=== PATIENT | female | born 1985 | race Caucasian/White ===

== ENCOUNTER 2017-05-16 16:40 | Inpatient (IN) | payer SELFPAY ==
[2017-05-16] VITALS: BP 145/67
[~2017-05-16] VITALS: Ht 154.9 cm; Wt 96.9 kg
--- NOTE | ~2017-05-16 | CON ---
[place], [place] REPORT OF CONSULTATION NAME: BECKY DALE UNIT #: [id number] ROOM: [id number] DOCTOR: PATRICK FLORENTINO ED.D (JET) BIRTHDATE: [birth year] DOS: 05/17/2017 HISTORY OF PRESENT ILLNESS: The patient is a 31-year-old female referred by the hospitalist for depression. At the present time, this patient is on the 5th floor at [facility] under the new vision program. She is single, but presently resides with her boyfriend. Her parents are both living. She has 2 brothers and 1 sister. 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 She does follow with medical services at [facility] in [place] where she sees a family practitioner. Her medical history is pertinent for opiate dependence, asthma, tobacco abuse, degenerative disk disease, depression and fibromyalgia. Her medications include Suboxone, Soma, Cymbalta and trazodone. Her drug of choice is heroin and she does drink on occasion and smokes 1 pack of cigarettes per day. This patient was awake, alert and oriented in all three spheres. She denies any auditory or visual hallucinations or delusions and denies any suicidal thoughts. She states she does follow at [facility] in [place], [place] for substance abuse issues along with depression. This patient was admitted for detox and rehab following the of a friend by means of an overdose this past Sunday. The patient did have the drugs that her friend from, although she was not with her friend when she . The patient feels very depressed and sad and guilty about this. I did encourage her to follow up with her outpatient counseling in [place] and she did agree to do so. 1. Opiate dependence. 2. Major depressive disorder, recurrent. RECOMMENDATIONS: Continue psych meds as prescribed, continue with [facility] for outpatient counseling. Thank you very much for this consult. PATRICK FLORENTINO ED.D CM:CONSTR:REPORT OF CONSULTATION [id number] 05/17/17 1200 interface
[2017-05-16 16:49] VITALS: BP 187/100
[2017-05-16] MEDS ORDERED: TRAZODONE50 MG PO (16:50)
[2017-05-16] MEDS ORDERED: CYMBALTA60 MG PO (16:50)
[2017-05-16] MEDS ORDERED: SUBOXONE 8 MG-1 EACH SL (16:50)
[2017-05-16 17:18] LABS: BASO % 0.1 % (0.0-1.0); EOS # 0.1 10*3/uL (0.0-0.4); EOS % 1.4 % (1.0-4.0); HEMATOCRIT 38.5 % (37.0-47.0); HEMOGLOBIN 12.6 g/dl (12.0-16.0); LYMPH # 1.6 10*3/uL (1.3-4.4); LYMPH % 23.6 % (27.0-41.0); MEAN CELL VOLUME 80.5 fl (81.0-99.0); MEAN CORPUSCULAR HGB 26.4 pg (27.0-31.0); MEAN CORPUSCULAR HGB CONC 32.7 g/dl (33.0-37.0); MEAN PLATELET VOLUME 9.6 fl (9.6-12.3); MONO # 0.3 10*3/uL (0.1-1.0); MONO % 4.1 % (3.0-9.0); NEUT # 4.9 10*3/uL (2.3-7.9); NEUT % 70.4 % (47.0-73.0); PLATELET COUNT AUTOMATED 272 10*3/uL (130-400); RED BLOOD COUNT 4.78 10*6/uL (4.10-5.10); RED CELL DISTRI WIDTH 15.2 % (0-14.5); WHITE BLOOD COUNT 6.9 10*3/uL (4.8-10.8)
[2017-05-16 17:32] LABS: ALBUMIN 3.5 gm/dl (3.1-4.5); ALKALINE PHOSPHATASE 89 U/L (45-117); BILIRUBIN, TOTAL 0.3 mg/dl (0.2-1.0); BUN 11 mg/dl (7-24); CARBON DIOXIDE 27 mmol/L (21-32); CHLORIDE 105 mmol/L (98-107); EST GLOM FILT AFRICAN AMERICAN > 60 ml/min; GLUCOSE 107 mg/dL (65-99); POTASSIUM 3.7 mmol/L (3.5-5.1); SGOT/AST 17 IU/L (3-35); SGPT/ALT 21 U/L (12-78); SODIUM 139 mmol/L (136-145); TOTAL PROTEIN 8.2 gm/dL (6.4-8.2)
[2017-05-16 17:49] LABS: URINE AMPHETAMINES < 1000 (1000ng/ml); URINE BARBITURATES < 200 (200ng/ml); URINE COCAINE < 300 (300ng/ml)
[2017-05-16 18:14] LABS: BILIRUBIN NEGATIVE (NEGATIVE); BLOOD NEGATIVE (NEGATIVE); CLARITY CLOUDY (CLEAR); COLOR YELLOW (YELLOW); GLUCOSE NEGATIVE (NEGATIVE); KETONE NEGATIVE (NEGATIVE); LEUKO ESTERASE 1+ (NEGATIVE); NITRITE NEGATIVE (NEGATIVE); PROTEIN TRACE (NEGATIVE); UROBILINOGEN 0.2 E.U./dl (0.2-1.0)
[2017-05-16 18:22] LABS: BACTERIA 4+; EPITHELIAL CELLS 25-30; URINE REFLEX COMMENT YES (NO); WBC 51-100 wbc/hpf (0-5)
[2017-05-16 19:50] VITALS: BP 138/76
[2017-05-16] MEDS ORDERED: SOMA PO (20:12)
[2017-05-16 20:17] LABS: PROTHROMBIN TIME 10.4 SECONDS (9.0-12.4)
[2017-05-17 04:00] VITALS: BP 144/78
[2017-05-17 08:00] VITALS: BP 136/85
[2017-05-17 12:00] VITALS: BP 128/86
[2017-05-17 16:00] VITALS: BP 111/63
[2017-05-17 20:00] VITALS: BP 151/78
[2017-05-18] VITALS: BP 148/82
[2017-05-18 08:00] VITALS: BP 131/59
[2017-05-18 16:00] VITALS: BP 138/86
[2017-05-18 20:00] VITALS: BP 141/85
[2017-05-19] VITALS: BP 131/89
[2017-05-19] MEDS ORDERED: ATARAX,VISTARIL50 MG PO (07:59)
[2017-05-19] MEDS ORDERED: ROPINIROLE HYD0.5 MG PO (07:59)
[2017-05-19] MEDS ORDERED: ZOFRAN 4 MG ED2 TAB PO (07:59)
[2017-05-19] MEDS ORDERED: LEVAQUIN750 M1 PO (07:59)
[2017-05-19 08:00] VITALS: BP 123/72
[2017-05-19 12:00] VITALS: BP 111/68
== END 2017-05-19 14:28 | disposition home or self-care (01) | DRG 897 ==
LOC: ED 16:40 → 5E 17:14
PROVIDERS: Internal Medicine Hospice and Palliative Medicine; Physician Assistant
DX: F11.23 Opioid dependence with withdrawal (principal); R65.10 Systemic inflammatory response syndrome (SIRS) of non-infectious origin without acute organ dysfunction; Z68.41 Body mass index [BMI] 40.0-44.9, adult; E66.01 Morbid (severe) obesity due to excess calories; F33.9 Major depressive disorder, recurrent, unspecified; N39.0 Urinary tract infection, site not specified; F17.210 Nicotine dependence, cigarettes, uncomplicated; D50.9 Iron deficiency anemia, unspecified; G25.81 Restless legs syndrome; D72.810 Lymphocytopenia; I16.0 Hypertensive urgency; R73.9 Hyperglycemia, unspecified; M79.7 Fibromyalgia; M51.36 Other intervertebral disc degeneration, lumbar region; M19.90 Unspecified osteoarthritis, unspecified site; J45.909 Unspecified asthma, uncomplicated; Z83.3 Family history of diabetes mellitus; Z83.49 Family history of other endocrine, nutritional and metabolic diseases; Z79.899 Other long term (current) drug therapy; Z98.818 Other dental procedure status

== ENCOUNTER → 2025-07-06 | Outpatient (CLI) | payer OTHER ==
[~2025-07-06] MED LIST: ATARAX,VISTARIL50 MG PO; CYMBALTA60 MG PO; LEVAQUIN750 M1 PO; ROPINIROLE HYD0.5 MG PO; SOMA PO; SUBOXONE 8 MG-1 EACH SL; TRAZODONE50 MG PO; ZOFRAN 4 MG ED2 TAB PO
== END | disposition home or self-care (01) ==
LOC: WOUNDCARE 13:47
PROVIDERS: ATTEND Nurse Practitioner Family
DX: N60.02 Solitary cyst of left breast (principal); N61.22 Granulomatous mastitis, left breast; L03.311 Cellulitis of abdominal wall; F17.200 Nicotine dependence, unspecified, uncomplicated